=== PATIENT | female | born 1975 | race Caucasian/White ===

== ENCOUNTER → 2021-02-08 | Outpatient (CLI) | payer OTHER ==
[~2021-02-08] MED LIST: PHENERGAN 25 MG25 M1 PO
== END ==
LOC: KOH-I 08:00
DX: J01.81 Other acute recurrent sinusitis (principal)
CPT/HCPCS: 70486

== ENCOUNTER 2021-12-15 19:53 | Emergency (ER) | payer OTHER ==
[2021-12-15 20:35] LABS: HEMOGLOBIN 14.3 gm/dl (12.3-15.3); RED BLOOD COUNT 4.3 M/UL (4.00-5.10)
[2021-12-15 20:54] LABS: BUN/CREATININE RATIO 12 (0-10)
[2021-12-15] MEDS ORDERED: BENTYL 20MG TAB20 MG PO (22:24)
[2021-12-15] MEDS ORDERED: ZOFRAN ODT 4 MG4 MG PO (22:24)
== END 2021-12-15 22:28 | disposition home or self-care (01) ==
LOC: ER1 19:53
PROVIDERS: Family Medicine
DX: K52.9 Noninfective gastroenteritis and colitis, unspecified (principal); F17.210 Nicotine dependence, cigarettes, uncomplicated; Z88.6 Allergy status to analgesic agent
CPT/HCPCS: 80053; 81001; 83605; 83690; 85025; 87040; 87086; 99284; Q9967